=== PATIENT | female | born 1980 | race Caucasian/White ===

== ENCOUNTER 2019-05-21 07:07 | Emergency (ER) | payer OTHER, SELFPAY ==
--- NOTE | 2019-05-21 07:33 | EDPHYS ---
Physician Documentation [facility] Name: Kathie Kessler Age: 39 yrs Sex: Female : 1980 Arrival Date: 05/21/2019 Time: 07:08 Bed 20 Private MD: ED Physician Nikko Brown HPI: 05/21 07:26 This 39 yrs old Female presents to ER via Ambulatory with complaints of Sore jmm Throat. 07:26 The patient presents with sore throat. Onset: The symptoms/episode began/occurred jmm gradually, 2 day(s) ago. The patient or guardian complains of pain. This is a 39 year old female with a history of JUDITH III that presents to the ED with complaints of left sided neck pain with pain on swallowing radiating to the left ear. . Patient denies fever. 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 - Social history:: Smoking status: Patient/guardian denies using tobacco. - Ebola Screening: : Patient negative for fever greater than or equal to 101.5 degrees Fahrenheit, and additional compatible Ebola Virus Disease symptoms Patient denies exposure to infectious person Patient denies travel to an Ebola-affected area in the 21 days before illness onset No symptoms or risks identified at this time. ROS: 07:26 Constitutional: Negative for fever, chills, and weight loss, Cardiovascular: Negative jmm for chest pain, palpitations, and edema, Respiratory: Negative for shortness of breath, cough, wheezing, and pleuritic chest pain. 07:26 Neck: Positive for pain with movement, pain at rest. 07:26 Back: Positive for 07:26 All other systems are negative. Exam: 07:26 Constitutional: This is a well developed, well nourished patient who is awake, alert, jmm and in no acute distress. Head/Face: atraumatic. Eyes: EOMI, no conjunctival erythema appreciated ENT: Moist Mucus Membranes 07:26 Cardiovascular: Regular rate and rhythm. No edema appreciated Respiratory: Normal respirations, no respiratory distress appreciated Abdomen/GI: Non distended, soft Back: Normal ROM Skin: General appearance color normal MS/ Extremity: Moves all extremities, no obvious deformities appreciated, no edema noted to the lower extremities Neuro: Awake and alert, normal gait Psych: Behavior is normal, Mood is normal, Patient is cooperative and pleasant 07:26 Neck: External neck: ROM/movement: is normal, Lymph nodes: lymphadenopathy is appreciated, anterior cervical nodes, parotid nodes. Vital Signs: 07:14 BP 127 / 84 (/reg); Pulse 82; Resp 16; Temp 98.1; Pulse Ox 100% on R/A; Pain 8/10; sg 07:38 BP 118 / 68; Pulse 77; Resp 16; Pulse Ox 100% on R/A; sg MDM: 07:21 Patient medically screened. [facility] 07:26 Data reviewed: vital signs, nurses notes. Counseling: I had a detailed discussion with luis manuel the patient and/or guardian regarding: the historical points, exam findings, and any diagnostic results supporting the discharge/admit diagnosis, the need for outpatient follow up, to return to the emergency department if symptoms worsen or persist or if there are any questions or concerns that arise at home. Refusal of service: The patient/guardian displays adequate decision making capability and despite a detailed discussion of alternatives, benefits, risks, and consequences refuses: CT Scan. ED course: Differential includes sialadenitis vs lymphadenopathy. Patient declines CT. Patient given strict return precaution precautions. Patient understood and agrees with the plan of care. . Administered Medications: No medications were administered Disposition: 05/21/19 07:32 Discharged to Home. Impression: Enlarged lymph nodes, unspecified. - Condition is Stable. - Discharge Instructions: Lymphadenopathy. - Prescriptions for Augmentin 875- 125 mg Oral Tablet - take 1 tablet by ORAL route every 12 hours for 10 days; 20 tablet. - Medication Reconciliation Form, Thank You Letter, Antibiotic Education, Prescription Opioid Use form. - Follow up: Private Physician; When: 2 - 3 days; Reason: Recheck today's complaints, Continuance of care, Re-evaluation by your physician. Signatures: Emerson Pryor RN RN Shaun Galindo PA PA jmm Corrections: (The following items were deleted from the chart) 07:40 07:32 05/21/2019 07:32 Discharged to Home. Impression: Enlarged lymph nodes, sg unspecified. Condition is Stable. Forms are Medication Reconciliation Form, Thank You Letter, Antibiotic Education, Prescription Opioid Use. Follow up: Private Physician; When: 2 - 3 days; Reason: Recheck today's complaints, Continuance of care, Re-evaluation by your physician. luis manuel
--- NOTE | 2019-05-21 07:33 | ER ---
Nurse's Notes [facility] Name: Kathie Kessler Age: 39 yrs Sex: Female : 1980 Arrival Date: 05/21/2019 Time: 07:08 Bed 20 Private MD: Diagnosis: Enlarged lymph nodes, unspecified Presentation: 05/21 07:12 Presenting complaint: Patient states: About a day or two ago I had pain and pain when sg swallowing on the left side of my throat. This morning the pain increased an 8/10 and is described as throbbing. pt denies N/V/D/Fever/Chills at this time, reports tolerance to fluids/food but is painful on left side of throat with swallowing. Transition of care: patient was not received from another setting of care. Onset of symptoms was May 21, 2019. Risk Assessment: Do you want to hurt yourself or someone else? Patient reports no desire to harm self or others. Initial Sepsis Screen: Does the patient meet any 2 criteria? No. Patient's initial sepsis screen is negative. Does the patient have a suspected source of infection? No. Patient's initial sepsis screen is negative. Care prior to arrival: None. 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 - Social history:: Smoking status: Patient/guardian denies using tobacco. - Ebola Screening: : Patient negative for fever greater than or equal to 101.5 degrees Fahrenheit, and additional compatible Ebola Virus Disease symptoms Patient denies exposure to infectious person Patient denies travel to an Ebola-affected area in the 21 days before illness onset No symptoms or risks identified at this time. Screenin:31 Abuse screen: Denies threats or abuse. Denies injuries from another. Nutritional sg screening: No deficits noted. Tuberculosis screening: No symptoms or risk factors identified. Never had TB. Fall Risk None identified. Assessment: 07:29 General: Appears in no apparent distress. uncomfortable, well groomed, well developed, sg well nourished, Behavior is calm, cooperative, appropriate for age. Pain: Complains of pain in left sternocleidomastoid and left anterior aspect of neck Quality of pain is described as throbbing, Is continuous, Aggravated by eating, drinking. Cardiovascular: Capillary refill is brisk in bilateral fingers Patient's skin is warm and dry. Chest pain is denied. Respiratory: Airway is patent Respiratory effort is even, unlabored, Respiratory pattern is regular, symmetrical. GI: Abdomen is round non-distended, Reports tolerance of fluids, tolerance of food. : No signs and/or symptoms were reported regarding the genitourinary system. EENT: Nares are clear bilaterally Oral mucosa is moist. Throat is reddened has enlarged tonsils on left. Derm: Skin is pink, warm \T\ dry. Musculoskeletal: No signs and/or symptoms reported regarding the musculoskeletal system. Vital Signs: 07:14 BP 127 / 84 (/reg); Pulse 82; Resp 16; Temp 98.1; Pulse Ox 100% on R/A; Pain 8/10; sg 07:38 BP 118 / 68; Pulse 77; Resp 16; Pulse Ox 100% on R/A; sg ED Course: 07:08 Patient arrived in ED. ag3 07:12 Emerson Pryor, RN is Primary Nurse. sg 07:13 Triage completed. sg 07:15 Arm band placed on. sg 07:20 Shaun Ha PA is PHCP. [facility] 07:20 Nikko Brown MD is Attending Physician. [facility] 07:29 Patient has correct armband on for positive identification. Bed in low position. Call sg light in reach. Side rails up X2. Pulse ox on. NIBP on. Head of bed elevated. 07:38 No provider procedures requiring assistance completed. Patient did not have IV access sg during this emergency room visit. Administered Medications: No medications were administered Outcome: 07:32 Discharge ordered by . [facility] 07:38 Discharged to home ambulatory. sg 07:38 Condition: good 07:38 Discharge instructions given to patient, Instructed on discharge instructions, follow up and referral plans. no drinking with medication, medication usage, safety practices, Demonstrated understanding of instructions, follow-up care, medications, Prescriptions given X 1. 07:40 Patient left the ED. sg Signatures: Emerson Pryor, LORA RN sg Shaun Ha PA PA jmm Gomez, Alice ag3
[2019-05-21 07:51] VITALS: BP 127/84; TEMP 98.1; O2SAT 100
== END 2019-05-21 07:40 | disposition home or self-care (01) ==
LOC: ER 07:07
DX: R59.9 Enlarged lymph nodes, unspecified (principal)
CPT/HCPCS: 99283

== ENCOUNTER 2019-11-08 16:43 | Emergency (ER) | payer OTHER ==
--- OUTSIDE RECORDS SUMMARY | 2019-11-08 16:45 | XMS REPORT | Summary of Care ---
:1980 Author Organization [address] [address] Care Team Providers Name Role Phone Carmen Munoz [facility] Primary Care Provider Reason for Visit Reason Comments Appointment schedule surgery- has not heard from clinic Encounter Details Date Type Department Care Team Description 09/24/2019 Telephone [facility] Greg Mccormack MD Appointment (schedule [facility] surgery- has not heard [place], [place] from clinic ) [address] [address] [address], 7th floor [phone] [place] [address] Allergies No Known Allergiesdocumented as of this encounter (statuses as of 10/01/2019) Medications No known medicationsdocumented as of this encounter (statuses as of 10/01/2019) Active Problems Problem Noted Date Pap smear of cervix with ASCUS, cannot exclude HGSIL 01/22/2019 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 Never 01/10/2019 How many drinks containing alcohol do you have on a typical Not asked day when you are drinking? How often do you have six or more drinks on one occasion? Not asked Sex Assigned at Date Recorded Not on file Job Start Date Occupation Industry Not on file Not on file Not on file Travel History Travel Start Travel End No recent travel history available. documented as of this encounter Last Filed Vital Signs Not on filedocumented in this encounter Plan of Treatment Health Maintenance Due Date Last Done Comments VARICELLA VACCINES (1 of 2 - 1982 2-dose childhood series) DTaP,Tdap,and Td Vaccines ( - 1992 Tdap) INFLUENZA VACCINE (#1) 2019 PAP SMEAR 01/10/2022 01/10/2019 PNEUMOCOCCAL 0-64 YEARS COMBINED Aged Out No longer eligible based on SERIES patient's age to complete this topic documented as of this encounter Results Not on filedocumented in this encounter Insurance Payer Benefit Plan Subscriber ID Effective Phone Address Type / Group Dates [facility] x[facility] 2019-Prese [phone] Medicaid WOMEN nt [address] [place] [address] [facility] MEDICAID OF xxxxxxxxx 2019-Prese [phone] Medicaid [place] nt [address] [place] [address] documented as of this encounter Advance Directives Name Relationship Healthcare Agent Relationship Communication Supa Kessler Spouse Primary healthcare agent
--- OUTSIDE RECORDS SUMMARY | 2019-11-08 16:45 | XMS REPORT | Summary of Care ---
:1980 Author Organization [facility] Address [address] [place] [address] Care Team Providers Name Role Phone Carmen Munoz [facility] Primary Care Provider Reason for Visit Reason Comments Appointment Encounter Details Date Type Department Care Team Description 10/05/2019 Telephone [facility] Greg Mccormack MD Appointment [address] [phone] [place] [phone] [place] [address] Allergies No Known Allergiesdocumented as of this encounter (statuses as of 10/08/2019) Medications No known medicationsdocumented as of this encounter (statuses as of 10/08/2019) Active Problems Problem Noted Date Pap smear of cervix with ASCUS, cannot exclude HGSIL 01/22/2019 Vaginal high 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 positive 01/22/2019 Irregular menstrual cycle 01/10/2019 Well woman exam 01/10/2019 Morbid obesity 01/10/2019 documented as of this encounter (statuses as of 10/08/2019) Social History Tobacco Use Types Packs/Day Years [...] Phone Address Type / Group Dates [facility] [place] [facility] xxxxxxxxx 2019-Prese [phone] Medicaid WOMEN nt [address] [place] [address] [facility] MEDICAID OF xxxxxxxxx 2019-Prese [phone] [address] Medicaid [place] nt [address] [place] [address] documented as of this encounter Advance Directives Name Relationship Healthcare Agent Relationship Communication Supa Kessler Spouse Primary healthcare agent
--- OUTSIDE RECORDS SUMMARY | 2019-11-08 16:45 | XMS REPORT | Summary of Care ---
:1980 Author Organization [facility] Address [address] [place] [address] Care Team Providers Name Role Phone Carmen Munoz [facility] Primary Care Provider Reason for Visit Reason Comments Appointment Encounter Details Date Type Department Care Team Description 10/05/2019 Telephone [facility] Greg Mccormack MD Appointment [address] [phone] [place] [phone] [place] [address] Allergies No Known Allergiesdocumented as of this encounter (statuses as of 10/09/2019) Medications No known medicationsdocumented as of this encounter (statuses as of 10/09/2019) Active Problems Problem Noted Date Pap smear of cervix with ASCUS, cannot exclude HGSIL 01/22/2019 Vaginal high 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 positive 01/22/2019 Irregular menstrual cycle 01/10/2019 Well woman exam 01/10/2019 Morbid obesity 01/10/2019 documented as of this encounter (statuses as of 10/09/2019) Social History Tobacco Use Types Packs/Day Years [...] Phone Address Type / Group Dates [facility] [place] [facility] xxxxxxxxx 2019-Prese [phone] Medicaid WOMEN nt [address] [place] [address] [facility] MEDICAID OF xxxxxxxxx 2019-Prese [phone] Medicaid [place] nt [address] [place] [address] documented as of this encounter Advance Directives Name Relationship Healthcare Agent Relationship Communication Supa Kessler Spouse Primary healthcare agent
--- OUTSIDE RECORDS SUMMARY | 2019-11-08 16:45 | XMS REPORT | Summary of Care ---
:1980 Author Organization [address] [address] Care Team Providers Name Role Phone Carmen Munoz [facility] Primary Care Provider Reason for Visit Reason Comments Appointment schedule surgery- has not heard from clinic Encounter Details Date Type Department Care Team Description 09/24/2019 Telephone [facility] Greg Mccormack MD Appointment (schedule [facility] surgery- has not heard [place] from clinic ) [address] [address] [address], 7th floor [phone] [place] [address] Allergies No Known Allergiesdocumented as of this encounter (statuses as of 10/03/2019) Medications No known medicationsdocumented as of this encounter (statuses as of 10/03/2019) Active Problems Problem Noted Date Pap smear of cervix with ASCUS, cannot exclude HGSIL 01/22/2019 Vaginal high 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 positive 01/22/2019 Irregular menstrual cycle 01/10/2019 Well woman exam 01/10/2019 Morbid obesity 01/10/2019 documented as of this encounter (statuses as of 10/03/2019) Social History Tobacco Use Types Packs/Day Years [...] Phone Address Type / Group Dates [facility] xxxxxxxxx 2019-Prese [phone] Medicaid WOMEN nt [address] [place] [address] [facility] MEDICAID OF xxxxxxxxx 2019-Prese [phone] Medicaid [place] nt [address] [place] [address] documented as of this encounter Advance Directives Name Relationship Healthcare Agent Relationship Communication Supa Kessler Spouse Primary healthcare agent
--- OUTSIDE RECORDS SUMMARY | 2019-11-08 16:45 | XMS REPORT | Summary of Care ---
:1980 Author Organization [facility] - Health Address [address] [place] [address] Care Team Providers Name Role Phone Carmen Munoz [facility] Primary Care Provider Encounter Details Date Type Department Care Team Description 09/04/2019 Orders Only [facility] Doctor Unassigned, No [address] [place] [address] [address] [place] [phone] Allergies No Known Allergiesdocumented as of this encounter (statuses as of 09/04/2019) Medications No known medicationsdocumented as of this encounter (statuses as of 09/04/2019) Active Problems Problem Noted Date Pap smear of cervix with ASCUS, cannot exclude HGSIL 01/22/2019 Vaginal high 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 positive 01/22/2019 Irregular menstrual cycle 01/10/2019 Well woman exam 01/10/2019 Morbid obesity 01/10/2019 documented as of this encounter (statuses as of 09/04/2019) Social History Tobacco Use Types Packs/Day Years [...] 1982 2-dose childhood series) DTaP,Tdap,and Td Vaccines (1 - 1992 Tdap) INFLUENZA VACCINE (#1) 2019 PAP SMEAR 01/10/2022 01/10/2019 PNEUMOCOCCAL 0-64 YEARS COMBINED Aged Out No longer eligible based on SERIES patient's age to complete this topic documented as of this encounter Procedures Procedure Name Priority Date/Time Associated Diagnosis Comments AUTHORIZATION FOR RELEASE Routine 09/04/2019 12: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
--- OUTSIDE RECORDS SUMMARY | 2019-11-08 16:45 | XMS REPORT | Summary of Care ---
:1980 Author Organization [facility] Address [address] [place] [address] Care Team Providers Name Role Phone Carmen Munoz [facility] Primary Care Provider Reason for Visit Reason Comments Appointment Encounter Details Date Type Department Care Team Description 09/10/2019 Telephone [facility] Vanda Gage Appointment [facility] MD Elida [address] [facility], [address] [place] [phone] [place] [address] Allergies No Known Allergiesdocumented as of this encounter (statuses as of 09/10/2019) Medications No known medicationsdocumented as of this encounter (statuses as of 09/10/2019) Active Problems Problem Noted Date Pap smear of cervix with ASCUS, cannot exclude HGSIL 01/22/2019 Vaginal high 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 positive 01/22/2019 Irregular menstrual cycle 01/10/2019 Well woman exam 01/10/2019 Morbid obesity 01/10/2019 documented as of this encounter (statuses as of 09/10/2019) Social History Tobacco Use Types Packs/Day Years [...] filedocumented in this encounter Plan of Treatment Date Type Specialty Care Team Description 09/13/2019 Office Visit [facility] 09/13/2019 Office Visit [facility], [facility] Fc Room Health Maintenance Due Date Last Done Comments [...] Effective Phone Address Type / Group Dates [facility] xxxxxxxxx 2019-Clint [phone] Medicaid WOMEN nt [address] [place] [address] documented as of this encounter Advance Directives Name Relationship Healthcare Agent Relationship Communication Ninowallace Kessler Spouse Primary healthcare agent
--- OUTSIDE RECORDS SUMMARY | 2019-11-08 16:45 | XMS REPORT | Summary of Care ---
:1980 Author Organization [facility] Address [address] [place] [address] Care Team Providers Name Role Phone Carmen Munoz [facility] Primary Care Provider Reason for Visit Reason Comments Pre-Op Exam Encounter Details Date Type Department Care Team Description 09/20/2019 Office Visit [facility] Greg Mccormack MD [address] [place] [address] Pelvic pain (Primary Dx); [facility] Resident Menorrhagia with irregular cycle; [facility] Personal history of cervical dysplasia; [address] [facility], [address]th [place] [address] Allergies No Known Allergiesdocumented as of this encounter (statuses as of 09/20/2019) Medications No known medicationsdocumented as of this encounter (statuses as of 09/20/2019) Active Problems Problem Noted Date Pap smear of cervix with ASCUS, cannot exclude HGSIL 01/22/2019 Vaginal high 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 positive 01/22/2019 Irregular menstrual cycle 01/10/2019 Well woman exam 01/10/2019 Morbid obesity 01/10/2019 documented as of this encounter (statuses as of 09/20/2019) Social History Tobacco Use Types Packs/Day Years [...] of this encounter Last Filed Vital Signs Vital Sign Reading Time Taken Comments Blood Pressure 134/86 09/20/2019 1:43 PM NASCAR PIT CREW PERSON Pulse 94 09/20/2019 1:43 PM NAS[employer] P[employer] CREW PERSON Temperature 37 C (98.6 F) 09/20/2019 1:43 PM NASCAR PIT CREW PERSON Respiratory Rate 18 09/20/2019 1:43 PM NAS[employer] P[employer] CREW PERSON Oxygen Saturation - - Inhaled Oxygen Concentration - - Weight 105 kg (231 lb 8 oz) 09/20/2019 1:43 PM NASCAR PIT CREW PERSON Height 162.6 cm (5' 4") 09/20/2019 1:43 PM NAS[employer] P[employer] CREW PERSON Body Mass Index 39.74 09/20/2019 1:43 PM NASCAR PIT CREW PERSON documented in this encounter Progress Notes Uriel Garcai MD - 09/20/2019 2:15 PM CST [facility] Clinic Visit Date: 09/20/2019 CC: Pre-Op Exam HPI: Kathie Kessler is a 39 year old female who presents to clinic to discuss hysterectomy. She states she wants a hysterectomy due to heavy menstrual bleeding, pelvic pain, and cervical dysplasia. Shehas a history of ASC-H Pap and JUDITH III, diagnosed by colposcopic biopsy on 02/2019. She is declining a LEEP for her history of dysplasia. She declines wanting to attempt medical treatment for her pelvicpain and heavy bleeding and is adamant about surgery. She reports no past medical history and does not take any medications. She had a pelvic ultrasound performed today. PMH: Reports no medical problems Meds: No medications SHx: laparoscopic appendectomy/cholecystectomy, tubal ligation Histories: OB History Para Term AB Living 4 3 3 1 3 SAB TAB Ectopic Multiple Live Births 1 3 # Outcome Date GA Lbr Star/2nd Weight Sex Delivery Anes PTL Lv 4 Term 02/27/04 M KHADAR 3 SAB 2004 2 Term 09/26/01 M KHADAR 1 Term 07/30/99 F KHADAR Past Medical History: Diagnosis Date Anemia ongoing, not on medication Anesthesia complication malignant hyperthermia Depression stable now, not on medication Irregular menstrual cycle 01/10/2019 Pap smear of cervix with ASCUS, cannot exclude HGSIL 01/22/2019 Past Surgical History: Procedure Laterality Date ABDOMEN SURGERY PROC UNLISTED APPENDECTOMY 08/2004 CHOLECYSTECTOMY 08/2004 gallbladder removed TUBAL LIGATION 2003 Family History Problem Relation Age of Onset Heart Father Cancer Maternal Uncle Asthma Maternal Uncle Heart Maternal Grandmother Hypertension Maternal Grandmother Other - see comments Maternal Grandmother copd Cancer Paternal Grandmother Social History Tobacco Use Smoking status: Never Smoker Smokeless tobacco: Never Used Substance Use Topics Alcohol use: Never Frequency: Never Drug use: Never Home Medications: No current outpatient medications on file. No current facility-administered medications for this visit. Allergies: No Known Allergies Review of Systems Constitutional: Negative for chills and fever. Respiratory: Negative for shortness of breath. Cardiovascular: Negative for chest pain. Gastrointestinal: Negative for abdominal pain, diarrhea, nausea and vomiting. Genitourinary: Positive for menstrual problem and pelvic pain. Negative for vaginal bleeding. Neurological: Negative for dizziness and light-headedness. BP 134/86 (BP Location: Left arm, Patient Position: Sitting, BP CUFF SIZE: Adult Medium) | Pulse 94 | Temp 37 C (98.6 F) (Oral) | Resp 18 | Ht 5' 4 " (1.626 m) | Wt 231 lb 8 oz (105 kg) | BMI 39.74 kg/m Physical Exam Vitals reviewed. Constitutional: She is oriented to person, place, and time. She appears well- developed and well-nourished. Cardiovascular: Regular rate and rhythm. No gallop, no friction rub and no murmur auscultated. Pulmonary/Chest: Normal inspiratory effort. Abdominal: Abdomen is soft. No tenderness present. Neuro/Psychiatric: She has a normal mood and affect. She is oriented to person, place, and time. Skin: Skin normal. Labs: Pap (01/2019): ASC-H and +HR HPV Colposcopy (02/2019): Biopsy - 12:00, high grade squamous intraepithelial lesion (JUDITH 2-3) Biopsy - 1:00, benign squamous epithelium ECC - fragments of high-grade squamous intraepithelial lesion (JUDITH 3) Endometrial biopsy (04/2019): - PROLIFERATIVE ENDOMETRIUM WITH TUBAL METAPLASIA AND STROMAL BREAKDOWN CONSISTENT WITH ANOVULATORY CYCLE - FRAGMENTS OF BENIGN ENDOCERVICAL GLANDULAR AND SQUAMOUS EPITHELIUM Imaging: Pelvic US (09/20/2019): UTERUS: The uterus measures 11.2 x 3.8 x 4.7 cm. The endometrium is homogeneous and measures 13 mm in thickness. An intramural posterior superior fibroid is seen measuring 2.1 x 1 x 1.6 cm Few nabothian cysts are noted at the cervix. OVARIES: The right ovary measures 3.1 x 2.7 x 1.8 cm (8 mL). The left ovary measures 3.4 x 2.5 x 2.5cm (11 mL). No adnexal masses. No free fluid. IMPRESSION 2.1 cm posterior superior uterine leiomyoma. Normal sonographic morphology of the ovaries. Assessment and Plan: Kathie Kessler is a 39 year old female who presents to clinic to discuss hysterectomy. ICD-10-CM ICD-9-CM 1. Pelvic pain R10.2 [id number] 2. Menorrhagia with irregular cycle N92.1 626.2 3. Personal history of cervical dysplasia Z87.410 V13.22 4. Fibroids D21.9 215.9 Consents for total laparoscopic hysterectomy and bilateral salpingectomy signed with the patient today. Patient informed that she will be contacted in the future to schedule her surgery. Will need to return for Affirm swab in addition to preop exam. Uriel Garcia MD documented in this encounter Plan of Treatment Health Maintenance Due Date Last Done Comments VARICELLA VACCINES ( of - 1982 2-dose childhood series) DTaP,Tdap,and Td Vaccines ( - 1992 Tdap) INFLUENZA VACCINE (#1) 2019 PAP SMEAR 01/10/2022 01/10/2019 PNEUMOCOCCAL 0-64 YEARS COMBINED Aged Out No longer eligible based on SERIES patient's age to complete this topic documented as of this encounter Results Not on filedocumented in this encounter Visit Diagnoses Diagnosis Pelvic pain - Primary Unspecified symptom associated with female genital organs Menorrhagia with irregular cycle Excessive or frequent menstruation Personal history of cervical dysplasia Fibroids Leiomyoma of uterus, unspecified documented in this encounter Insurance Payer Benefit Plan / Subscriber ID Effective Dates Phone Address Type Group [employer]HP MEDICAID OF xxxxxxxxx 2019-Present [phone] [address] [place] [id number] [place] [address] documented as of this encounter Advance Directives Name Relationship Healthcare Agent Relationship Communication Supa Kessler Spouse Primary healthcare agent
--- OUTSIDE RECORDS SUMMARY | 2019-11-08 16:45 | XMS REPORT | Summary of Care ---
:1980 Author Organization [facility] Address [address] [place] [address] Care Team Providers Name Role Phone Carmen Munoz [facility] Primary Care Provider Reason for Referral Radiology Services (Routine) Status Reason Specialty Diagnoses / Referred By Referred To Procedures Contact Contact Closed Diagnostic Diagnoses Severe dysplasia of cervix (JUDITH III) Greg Mccormack, Radiology Procedures US PELVIS COMPLETE WITH TRANSDIANA VARGAS [address] [place] [phone] Reason for Visit Radiology Services (Routine) Status Reason Specialty Diagnoses / Referred By Referred To Procedures Contact Contact Closed Diagnostic Diagnoses Severe dysplasia of cervix (JUDITH III) Greg Mccormack, Radiology Procedures US PELVIS COMPLETE WITH SUMMER VARGAS [address] [place] [phone] Encounter Details Date Type Department Care Team Description 09/20/2019 Hospital Encounter [facility] Ultrasound Greg Mccormack MD Arrived [address] [place] [phone] Allergies No Known Allergiesdocumented as of this encounter (statuses as of 09/21/2019) Medications No known medicationsdocumented as of this encounter (statuses as of 09/21/2019) Active Problems Problem Noted Date Pap smear of cervix with ASCUS, cannot exclude HGSIL 01/22/2019 Vaginal high 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 positive 01/22/2019 Irregular menstrual cycle 01/10/2019 Well woman exam 01/10/2019 Morbid obesity 01/10/2019 documented as of this encounter (statuses as of 09/21/2019) Social History Tobacco Use Types Packs/Day Years [...] Last Done Comments VARICELLA VACCINES (1 of - 1982 2-dose childhood series) DTaP,Tdap,and Td Vaccines ( - 1992 Tdap) INFLUENZA VACCINE (#1) 2019 PAP SMEAR 01/10/2022 01/10/2019 PNEUMOCOCCAL 0-64 YEARS COMBINED Aged Out No longer eligible based on SERIES patient's age to complete this topic documented as of this encounter Procedures Procedure Name Priority Date/Time Associated Comments Diagnosis US PELVIS COMPLETE Routine 09/20/2019 1:28 Severe dysplasia of Results for this WITH TRANSVAGINAL PM PICKING BELT OPERATOR cervix (JUDITH III) procedure are in the results section. documented in this encounter Results US PELVIS COMPLETE WITH TRANSVAGINAL (09/20/2019 1:28 PM PICKING BELT OPERATOR) Specimen Impressions Performed At PACS/VR/DOSE 1. A 2.1 cm posterior uterine leiomyoma. Multiple vertical shadows suggest other smaller fibroids. 2. Normal sonographic morphology of the ovaries. Preliminary Report Dictated by Resident: Chirag Norwood I, Holly Caceres MD., have reviewed this study and agree with the above report. Narrative Performed At EXAM: PELVIC ULTRASOUND, TRANSABDOMINAL AND TRANSVAGINAL PACS/VR/DOSE HISTORY: 39-year-old female, Ab1 with heavy vaginal bleeding TECHNIQUE: Survey transabdominal and transvaginal ultrasound imaging of the pelvis was performed including color Doppler evaluation with goodwill representative images obtained. COMPARISON: None FINDINGS: UTERUS: The uterus measures 11.2 x 3.8 x 4.7 cm. The endometrium is homogeneous and measures 13 mm in thickness. An intramural posterior superior fibroid is seen measuring 2.1 x 1 x 1.6 cm Few nabothian cysts are noted at the cervix. OVARIES: The right ovary measures 3.1 x 2.7 x 1.8 cm (8 mL). The left ovary measures 3.4 x 2.5 x 2.5 cm (11 mL). No adnexal masses. No free fluid. Procedure Note [facility], Radiant Results Inft User - 09/20/2019 4:33 PM PICKING BELT OPERATOR EXAM: PELVIC ULTRASOUND, TRANSABDOMINAL AND TRANSVAGINAL HISTORY: 39-year-old female, Ab1 with heavy vaginal bleeding TECHNIQUE: Survey transabdominal and transvaginal ultrasound imaging of the pelvis was performed including color Doppler evaluation with goodwill representative images obtained. COMPARISON: None FINDINGS: UTERUS: The uterus measures 11.2 x 3.8 x 4.7 cm. The endometrium is homogeneous and measures 13 mm in thickness. An intramural posterior superior fibroid is seen measuring 2.1 x 1 x 1.6 cm Few nabothian cysts are noted at the cervix. OVARIES: The right ovary measures 3.1 x 2.7 x 1.8 cm (8 mL). The left ovary measures 3.4 x 2.5 x 2.5 cm (11 mL). No adnexal masses. No free fluid. IMPRESSION 1. A 2.1 cm posterior uterine leiomyoma. Multiple vertical shadows suggest other smaller fibroids. 2. Normal sonographic morphology of the ovaries. Preliminary Report Dictated by Resident: Holly Huynh MD., have reviewed this study and agree with the above report. Performing Organization Address City/State/Zipcode Phone Number PACS/VR/DOSE documented in this encounter Visit Diagnoses Diagnosis Severe dysplasia of cervix (JUDITH III) Carcinoma in situ of cervix uteri documented in this encounter Insurance Payer Benefit Plan / Subscriber ID Effective Dates Phone Address Type Group [employer] MEDICAID OF xxxxxxxxx 2019-Present [phone] [address] [place] [id number] [place] [address] documented as of this encounter Advance Directives Name Relationship Healthcare Agent Relationship Communication Supa Kessler Spouse Primary healthcare agent
--- OUTSIDE RECORDS SUMMARY | 2019-11-08 16:45 | XMS REPORT ---
:1980 Author Organization [facility] Address [address] [place] [address] Dr. Mustafa [address] [place] [address] Care Team Providers Name Role Phone Unavailable Unavailable Unavailable Problems This patient has no known problems. Allergies, Adverse Reactions, Alerts This patient has no known allergies or adverse reactions. Medications This patient has no known medications.
--- OUTSIDE RECORDS SUMMARY | 2019-11-08 16:45 | XMS REPORT | Summary of Care ---
:1980 Author Organization [facility] Address [address] [place] [address] Care Team Providers Name Role Phone Carmen Munoz [facility] Primary Care Provider Reason for Visit Reason Comments Pre-Op Exam Encounter Details Date Type Department Care Team Description 09/20/2019 Office Visit [facility] Greg Mccormack MD [address] [place] [phone] Pelvic pain (Primary Dx); [facility] Resident Menorrhagia with irregular cycle; [facility] Personal history of cervical dysplasia; [address] [facility], [address]th [place] [address] Allergies No Known Allergiesdocumented as [...] Comments Blood Pressure 134/86 09/20/2019 1:43 PM GROUP INSURANCE SPECIALIST Pulse 94 09/20/2019 1:43 PM GROUP INSURANCE SPECIALIST Temperature 37 C (98.6 F) 09/20/2019 1:43 PM GROUP INSURANCE SPECIALIST Respiratory Rate 18 09/20/2019 1:43 PM GROUP INSURANCE SPECIALIST Oxygen Saturation - - Inhaled Oxygen Concentration - - Weight 105 kg (231 lb 8 oz) 09/20/2019 1:43 PM GROUP INSURANCE SPECIALIST Height 162.6 cm (5' 4") 09/20/2019 1:43 PM GROUP INSURANCE SPECIALIST Body Mass Index 39.74 09/20/2019 1:43 PM GROUP INSURANCE SPECIALIST documented in this encounter Progress Notes Uriel Garcia MD - 09/20/2019 2:15 PM CST [facility] Clinic Visit Date: [...] hysterectomy. ICD-10-CM ICD-9-CM 1. Pelvic pain R10.2 [id number] 2. Menorrhagia with irregular cycle N92.1 626.2 [...] Type Group [employer] MEDICAID OF xxxxxxxxx 2019-Present [phone] [place] [id number] [place] [address] documented as of this encounter Advance Directives Name Relationship Healthcare Agent Relationship Communication Supa Kessler Spouse Primary healthcare agent
--- OUTSIDE RECORDS SUMMARY | 2019-11-08 16:45 | XMS REPORT | Summary of Care ---
:1980 Author Organization [facility] Address [address] [place] [address] Care Team Providers Name Role Phone Carmen Munoz [facility] Primary Care Provider Reason for Visit Reason Comments Appointment Encounter Details Date Type Department Care Team Description 10/05/2019 Telephone [facility] Greg Mccormack MD Appointment [address] [phone] [place] [phone] [place] [address] Allergies No Known Allergiesdocumented as [...] Phone Address Type / Group Dates [facility] [place] [id number] xxxxxxxxx 2019-Prese [phone] [address] WOMEN [address] [place] [address] [facility] MEDICAID OF xxxxxxxxx 2019-Prese [phone] [address] Medicaid [place] [address] [place] [address] documented as of this encounter Advance Directives Name Relationship Healthcare Agent Relationship Communication Supa Kessler Spouse Primary healthcare agent
--- NOTE | 2019-11-08 18:06 | RAD REPORT ---
EXAM DESCRIPTION: RAD - Chest Single View - 11/08/2019 5:34 pm CLINICAL HISTORY: Cough;Fever Chest pain. COMPARISON: CHEST PA AND LAT 2 VIEW dated 12/05/2014; CHEST PA AND LAT 2 VIEW dated 06/04/2012 FINDINGS: Portable technique limits examination quality. The lungs are grossly clear. The heart is normal in size. No displaced fractures. IMPRESSION: No acute intrathoracic process suspected.
--- NOTE | 2019-11-08 18:29 | EDPHYS ---
Physician Documentation [facility] Name: Kathie Kessler Age: 39 yrs Sex: Female : 1980 Arrival Date: 11/08/2019 Time: 16:46 Bed 15 Private MD: ED Physician Mildred Heard HPI: 11/07 18:22 This 39 yrs old Female presents to ER via Ambulatory with complaints of jr8 Congestion, Cough, Fever. 18:22 The patient or guardian reports cough, that is intermittent, described as moderate, jr8 with productive sputum, that is green. Onset: The symptoms/episode began/occurred gradually, 3 day(s) ago. Severity of symptoms: At their worst the symptoms were mild, in the emergency department the symptoms are unchanged. Modifying factors: The symptoms are alleviated by nothing, the symptoms are aggravated by nothing. Associated signs and symptoms: Pertinent positives: fever. The patient has not experienced similar symptoms in the past. The patient has not recently seen a physician. 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 - Social history:: Smoking status: Patient denies any tobacco usage or history of. ROS: 18:22 Eyes: Negative for injury, pain, redness, and discharge, Neck: Negative for injury, jr8 pain, and swelling, Abdomen/GI: Negative for abdominal pain, nausea, vomiting, diarrhea, and constipation, Back: Negative for injury and pain, : Negative for injury, bleeding, discharge, and swelling, MS/Extremity: Negative for injury and deformity, Skin: Negative for injury, rash, and discoloration, Neuro: Negative for headache, weakness, numbness, tingling, and seizure. 18:22 Constitutional: Positive for fever. 18:22 ENT: Positive for sinus congestion, sinus pain, sneezing, hoarsness . 18:22 Respiratory: Positive for cough, with green sputum. Exam: 18:22 Eyes: Pupils equal round and reactive to light, extra-ocular motions intact. Lids and jr8 lashes normal. Conjunctiva and sclera are non-icteric and not injected. Cornea within normal limits. Periorbital areas with no swelling, redness, or edema. ENT: Nares patent. No nasal discharge, no septal abnormalities noted. Tympanic membranes are normal and external auditory canals are clear. Oropharynx with no redness, swelling, or masses, exudates, or evidence of obstruction, uvula midline. Mucous membranes moist. Neck: Trachea midline, no thyromegaly or masses palpated, and no cervical lymphadenopathy. Supple, full range of motion without nuchal rigidity, or vertebral point tenderness. No Meningismus. Cardiovascular: Regular rate and rhythm with a normal S1 and S2. No gallops, murmurs, or rubs. Normal PMI, no JVD. No pulse deficits. Respiratory: Lungs have equal breath sounds bilaterally, clear to auscultation and percussion. No rales, rhonchi or wheezes noted. No increased work of breathing, no retractions or nasal flaring. Abdomen/GI: Soft, non-tender, with normal bowel sounds. No distension or tympany. No guarding or rebound. No evidence of tenderness throughout. Back: No spinal tenderness. No costovertebral tenderness. Full range of motion. Skin: Warm, dry with normal turgor. Normal color with no rashes, no lesions, and no evidence of cellulitis. MS/ Extremity: Pulses equal, no cyanosis. Neurovascular intact. Full, normal range of motion. Neuro: Awake and alert, GCS 15, oriented to person, place, time, and situation. Cranial nerves II-XII grossly intact. Motor strength 5/5 in all extremities. Sensory grossly intact. Cerebellar exam normal. Normal gait. Vital Signs: 16:53 BP 156 / 92; Pulse 89; Resp 17; Temp 97.9(O); Pulse Ox 99% on R/A; Weight 104.33 kg; ss Height 5 ft. 4 in. (162.56 cm); Pain 0/10; 18:49 BP 144 / 107; Pulse 91; Resp 18; Temp 97.6; Pulse Ox 100% ; Pain 0/10; ll1 16:53 Body Mass Index 39.48 (104.33 kg, 162.56 cm) MDM: 16:48 Patient medically screened. jr8 18:22 Data reviewed: vital signs, nurses notes, lab test result(s), radiologic studies, plain jr8 films. Data interpreted: Pulse oximetry: on room air is 99 %. Interpretation: normal. Counseling: I had a detailed discussion with the patient and/or guardian regarding: the historical points, exam findings, and any diagnostic results supporting the discharge/admit diagnosis, lab results, radiology results, the need for outpatient follow up, a family practitioner, to return to the emergency department if symptoms worsen or persist or if there are any questions or concerns that arise at home. ED course: Strict quarantine at home given until results are resulted. If worse to come back to ED. Patient good with this . 11/07 16:54 Order name: Strep; Complete Time: 18:32 [facility] 11/07 16:54 Order name: Influenza Screen (a \T\ B); Complete Time: 18:32 [facility] 11/07 16:54 Order name: XRAY Chest (1 view); Complete Time: 18:09 [facility] 11/07 16:54 Order name: Airborne Precautions; Complete Time: 17:43 [facility] 11/07 17:52 Order name: COVID-19 [facility] 11/07 18:24 Order name: Throat Culture EDMS Administered Medications: No medications were administered Disposition: 11/08/19 18:28 Discharged to Home. Impression: Acute sinusitis, Acute bronchitis. - Condition is Stable. - Discharge Instructions: Acute Bronchitis, Adult, Sinusitis, Adult, Form - Return To Work. - Prescriptions for Guaifenesin AC 10- 100 mg/5 mL Oral Liquid - take 10 milliliter by ORAL route every 4 hours As needed; 240 milliliter. - Medication Reconciliation Form, Thank You Letter, Antibiotic Education, Prescription Opioid Use form. - Follow up: Private Physician; When: As needed; Reason: Recheck today's complaints, Continuance of care, Re-evaluation by your physician. - Problem is new. - Symptoms have improved. Addendum: 11/16/2019 06:52 Co-signature as Attending Physician, Mildred Heard MD. m a2 Signatures: Dispatcher [employer] EDMS Tomasa Ann RN RN ss Manuelito Rider PA PA jr8 Mildred Heard MD MD ma2 Antoni Coleman RN RN ll1 Corrections: (The following items were deleted from the chart) 11/07 18:29 18:22 ENT: Positive for sneezing, hoarsness , nicolás jr8 18:51 18:28 11/08/2019 18:28 Discharged to Home. Impression: Acute sinusitis; Acute ll1 bronchitis. Condition is Stable. Forms are Medication Reconciliation Form, Thank You Letter, Antibiotic Education, Prescription Opioid Use. Follow up: Private Physician; When: As needed; Reason: Recheck today's complaints, Continuance of care, Re-evaluation by your physician. Problem is new. Symptoms have improved. jr8
--- NOTE | 2019-11-08 18:29 | ER ---
Nurse's Notes [facility] Name: Kathie Kessler Age: 39 yrs Sex: Female : 1980 Arrival Date: 11/08/2019 Time: 16:46 Bed 15 Private MD: Diagnosis: Acute sinusitis;Acute bronchitis Presentation: 11/07 16:53 Chief complaint: Patient states: nasal congestion and cough that began 3 days ago. ss Fever this morning. PT states, "I just wake up hot. I think it's a sinus infection.". Coronavirus screen: Surgical mask placed on patient. Patient moved to private room, placed in contact and droplet isolation with eye protection until further assessment. Patient reports a cough. Patient denies shortness of breath or difficulty breathing. Patient reports a measured and/or subjective temperature greater than 100.4F. Patient denies travel on a cruise ship or to a country the [facility] currently lists as an affected area. Patient denies contact with known and/or suspected case of COVID-19. Ebola Screen: Patient denies exposure to infectious person. Patient denies travel to an Ebola-affected area in the 21 days before illness onset. Resp Distress? No respiratory distress is noted at this time. Initial Sepsis Screen: Does the patient meet any 2 criteria? No. Patient's initial sepsis screen is negative. Does the patient have a suspected source of infection? Yes: Productive cough/pneumonia. Risk Assessment: Do you want to hurt yourself or someone else? Patient reports no desire to harm self or others. 16:53 Method Of Arrival: Ambulatory ss 16:53 Acuity: FEDERICO 4 ss 17:28 Onset of symptoms was November 06, 2019. 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 - Social history:: Smoking status: Patient denies any tobacco usage or history of. Screenin:27 Abuse screen: Denies threats or abuse. Nutritional screening: No deficits noted. ll1 Tuberculosis screening: No symptoms or risk factors identified. Fall Risk None identified. Total Alonso Fall Scale indicates No Risk (0-24 pts). Assessment: 17:25 General: Appears in no apparent distress. Behavior is calm, cooperative. Pain: Denies ll1 pain. Neuro: No deficits noted. Cardiovascular: No deficits noted. Respiratory: Reports cough that is Airway is patent Trachea midline Respiratory effort is even, unlabored, Respiratory pattern is regular, symmetrical, Sputum is thick, green Breath sounds are clear bilaterally. EENT: Reports nasal congestion. 18:10 Reassessment: [id number]. ss 18:17 Reassessment: Patient appears in no apparent distress at this time. No changes from ll1 previously documented assessment. Patient and/or family updated on plan of care and expected duration. Pain level reassessed. Patient is alert, oriented x 3, equal unlabored respirations, skin warm/dry/pink. Vital Signs: 16:53 BP 156 / 92; Pulse 89; Resp 17; Temp 97.9(O); Pulse Ox 99% on R/A; Weight 104.33 kg; ss Height 5 ft. 4 in. (162.56 cm); Pain 0/10; 18:49 BP 144 / 107; Pulse 91; Resp 18; Temp 97.6; Pulse Ox 100% ; Pain 0/10; ll1 16:53 Body Mass Index 39.48 (104.33 kg, 162.56 cm) ED Course: 16:46 Patient arrived in ED. mr 16:47 Manuelito Rider PA is PHCP. jr8 16:47 Mildred Heard MD is Attending Physician. jr8 16:57 Triage completed. ss 16:57 Antoni Coleman, RN is Primary Nurse. ll1 16:57 Arm band placed on right wrist. ss 17:29 Patient has correct armband on for positive identification. Bed in low position. Call ll1 light in reach. 17:34 XRAY Chest (1 view) In Process Unspecified. EDMS 18:50 No provider procedures requiring assistance completed. Patient did not have IV access ll1 during this emergency room visit. Administered Medications: No medications were administered Outcome: 18:28 Discharge ordered by . jr8 18:50 Discharged to home ambulatory. ll1 18:50 Condition: stable 18:50 Discharge instructions given to patient, Instructed on discharge instructions, follow up and referral plans. medication usage, Demonstrated understanding of instructions, follow-up care, medications, Prescriptions given X 1. 18:51 Patient left the ED. ll1 Addendum: 11/11/2019 12:53 Addendum: Other Contacted patient regarding negative COVID-19 swab results. Pt advised d m5 to remain in isolation until fever free for 72 hours and to return if symptoms worsen. Signatures: Dispatcher [employer] Tiana Mcclellan, RN RN dm5 Cris Hair mr JanisTomasa esparza, RN RN ss Manuelito Rider PA PA jr8 Lewis, Lynsay RN RN ll1
[2019-11-08 19:13] VITALS: BP 144/107; TEMP 97.6; O2SAT 100
== END 2019-11-08 18:51 | disposition home or self-care (01) ==
LOC: ER 16:43
DX: J20.9 Acute bronchitis, unspecified (principal); J01.90 Acute sinusitis, unspecified; Z03.818 Encounter for observation for suspected exposure to other biological agents ruled out
CPT/HCPCS: 87070; 87081; 87804 ×2; 71045; 99283; U0001

== ENCOUNTER 2024-05-31 08:34 | Emergency (ER) | payer OTHER, SELFPAY ==
--- OUTSIDE RECORDS SUMMARY | 2024-05-31 08:37 | XMS REPORT | Clinical Summary ---
Author Name Unknown Organization [facility] [place] Address [address] [place], [place] [address] Care Team Providers Care Retail Supervisor Name Role Phone Santiago Segura MD Primary Care Provider [phone] Allergies Active Allergy Reactions Criticality Noted Date Comments Onion 10/15/2019 Medications No known medications Active Problems Problem Noted Date Diagnosed Date Carcinoma in situ of uterine cervix 10/10/2019 Atypical squamous cells barron ot exclude high grade squamous intraepithelial lesion on cytologic smear of cervix (ASC-H) 10/10/2019 Menorrhagia 10/10/2019 Uterine leiomyoma 10/10/2019 Abnormal cytological finding in specimen from female genital organ 01/22/2019 Surgical History Surgery Date Site/Laterality Comments TUBAL LIGATION LAPAROSCOPIC CHOLECYSTECOMY 08/08/2004 - 08/07/2005 LAPAROSCOPY APPENDECTOMY 08/08/2004 - 08/07/2005 Medical History Medical History Date Comments Urinary incontinence 2003 when sneezi ng, coughing, laughing too hard, etc Uterine leiomyoma 2019 ultrasound acc ording to [facility] Abnormal uterine bleeding un related to menstrual cycle 2004 from random times to complet alex missing months Depressive disorder 2012 the of my Grandmother who raised me, tx helped Anxiety 2012 coupled with dep ression with tx Carcinoma in situ of uterine cervix Positive cervical high 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 Family History Medical History Relation Name Comments Malig Hypertension Father Colon cancer Maternal Grandfather Cali Celaya Sr . un known age of diagnosis. Passed in 2008 Melanoma Maternal Grandfather Cali Celaya Sr Mesothelioma Maternal Grandfather Cali Celaya Sr Prostate cancer Maternal Grandfather Cali Celaya Sr Skin cancer Maternal Grandfather Cali Celaya Sr Ovarian cancer Maternal Grandmother Rosa Celaya unkno wn age. hysterectomy Kidney cancer Maternal Uncle 1 Cali Celaya 30-40's . Lung cancer Maternal Uncle 2 Cesar Tirado unknown age . Smoker. Mesothelioma Paternal Grandfather Grandpa Z Pancreatic cancer Paternal Grandfather Grandpa Z -Unknown cancer Paternal Grandmother Sita Correa Canc er in her jaw Breast cancer Paternal Grandmother Sita Correa She pa ssed before I met her. Cervical cancer Paternal Grandmother Sita Correa Ovarian cancer Paternal Grandmother Sita Correa unkno wn age. Relation Name Status Comments Father Maternal Grandfather Cali Celaya Sr pass ed away in 30's. Maternal Grandmother Rosa Celaya Maternal Uncle 1 Cali Celaya Jr Alive Maternal Uncle 2 Cesar Tirado Paternal Grandfather Grandpa Z Paternal Grandmother Sita Correa Social History Tobacco Use Types Packs/Day Years Used Date Smoking Tobacco: Never Smokeless Tobacco: Never Alcohol Use Standard Drinks/Week Comments Not Currently 0 (1 standard drink = 0.6 oz pure alcohol) I don't drink at all now, but I have years ago Sex and Gender Information Value Date Recorded Sex Assigned at Female 10/17/2019 4:45 PM CDT Gender Identity Female 10/17/2019 4:45 PM CDT Sexual Orientation Straight 10/17/2019 4: 45 PM CDT Obstetrics History Para Term AB IAB SAB Ectopic Multiple Livin g Live Births 4 3 1 1 3 3 Date Outcome GA Total Labor Labor/2nd/3rd Weight Sex Type Anes PTL Vicenta A1 A5 Name Clin Para Para Para SAB Comments Menarche: age 11 LMP: 07/27/2019 Last PAP:01/2019, abnormal ascus cannot rule out high grade. CIN3 on pap smear. Last pap smear before this was 2004. Before this past abnormal pap smear, no history of abnormal pap smear. High risk HPV. Denies history of any other STI. Periods:heavy bleeding for 3 days once every 3 months with severe pain. Parity:age 19 HRT:denies OCP:x 1 month HRT: None Fertility Tx: denies Breastfeed:x 6 months Plan of Treatment Health Maintenance Due Date Last Done Comments COVID-19 Vaccine (2023-2 5 season) 2024 Influenza Vaccine (#1) 2024 Pneumococcal Vaccine: Pediat rics (0 to 5 Years) and At-Risk Patients (6 to 64 Years) Aged Out No longer eligi ble based on patient's age to complete this topic Care Teams Retail Supervisor Relationship Specialty Start Date End Date Santiago Segura MD [address] [place] [address] [email or web address] PCP - General Gynecological Oncology 10/05/19
[2024-05-31] MEDS ORDERED: IBUPROFEN 400 MG TAB ONE (09:31)
[2024-05-31] MEDS ORDERED: LIDOCAINE 4% PATCH ONE (09:31)
[2024-05-31] MEDS ORDERED: methocarbamoL 500 MG TAB ONE (09:31)
--- NOTE | 2024-05-31 10:16 | RAD REPORT ---
EXAMINATION: XR RIGHT ELBOW CLINICAL INDICATION: Female, 44 years old. PAIN RIGHT TECHNIQUE: Multiple views of the right elbow were obtained. COMPARISON: No prior exam. FINDINGS: No evidence of fracture or dislocation. Normal alignment. No joint effusion. Soft tissues a re unremarkable.
--- NOTE | 2024-05-31 10:16 | RAD REPORT ---
EXAMINATION: CT LUMBAR SPINE WITHOUT CONTRAST CLINICAL INDICATION: Female, 44 years old. LOWER BACK PAIN TECHNIQUE: Axial CT images were obtained through the lumbar spine in soft tissue and bone windows wit hout intravenous contrast. Coronal and Sagittal reformatted images were created from the data set. One or more of the following dose reduction techniques were used: Automated exposure control, adjustm ent of the mA and/ or kV according to patient size, and/or iterative reconstruction. Unless otherwise specified, incidental findings do not require dedicated imaging follow-up. COMPARISON: No prior exam. FINDINGS: For purposes of this dictation, it is assumed that there are 5 non rib-bearing lumbar type vertebrae, and the most caudal fully segmented lumbar vertebra is labeled L5. ALIGNMENT: The lumbar spine demonstrates normal alignment without scoliosis or spondylolisthesis. BONES: No significant soft tissue abnormalities. No aggressive osseous lesions. DISCS: Mild posterior disc bulging is seen in lower lumbar levels. Mild degenerative disc disease L4- 5. Probable disc extrusion is present L4-5. LEVELS: No significant spinal canal or neural foraminal stenosis. No visualized abnormality within th e spinal canal. SOFT TISSUE: No soft tissue abnormalities. IMPRESSION: No acute lumbar spine abnormalities. Sjex-bj-nqdzexad lower lumbar spondylosis. Probable disc extrusion is present L4-5. If further evalu ation of disc disease is clinically indicated, recommend nonemergent MRI follow-up.
--- NOTE | 2024-05-31 10:17 | RAD REPORT ---
EXAMINATION: XR RIGHT FOREARM CLINICAL INDICATION: . PAIN TECHNIQUE:Two view radiograph of the right forearm were obtained. COMPARISON: No prior exam. FINDINGS: No bone or joint abnormality detected.
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
[2024-05-31 15:55] VITALS: TEMP 97.7
[2024-05-31 16:08] VITALS: BP 137/84; O2SAT 99
== END 2024-05-31 11:10 | disposition home or self-care (01) ==
LOC: ER 08:34
DX: M79.631 Pain in right forearm (principal); M25.521 Pain in right elbow; M54.50 Low back pain, unspecified; R93.89 Abnormal findings on diagnostic imaging of other specified body structures; V53.5XXA Driver of pick-up truck or van injured in collision with car, pick-up truck or van in traffic accident, initial encounter
CPT/HCPCS: 72131; 99284; J2001